=== PATIENT | female | born 1950 | race Two or more races ===

== ENCOUNTER 2016-04-29 13:15 | Emergency (ER) | payer OTHER ==
[~2016-04-29] VITALS: Ht 157.5 cm; Wt 97.5 kg
[2016-04-29 13:21] VITALS: BP 181/78
== END 2016-04-29 13:52 | disposition home or self-care (01) ==
LOC: ER 13:18
DX: I10 Essential (primary) hypertension (principal); E78.5 Hyperlipidemia, unspecified
CPT/HCPCS: 99283; A4606; Z7610

== ENCOUNTER 2017-06-14 12:11 | Emergency (ER) | payer OTHER ==
[~2017-06-14] VITALS: Ht 157.5 cm; Wt 96.2 kg
--- NOTE | 2017-06-14 12:20 | NUR ---
PATIENT TO ED DT ANXIETY SP LIVE ELECTRIC WIRE FELL ON HER [facility]. PATIENT DENIES INJURY. HOWEVER PATIENT'S ANXIOUS AT THIS TIME.. BP ON HIGH SIDE
--- NOTE | 2017-06-14 12:25 | NUR ---
MD CHAUHAN AT BEDSIDE
--- NOTE | 2017-06-14 12:38 | NUR ---
EKG IN PROGRESS
[2017-06-14 12:57] VITALS: BP 151/76
--- NOTE | 2017-06-14 12:58 | NUR ---
Patient discharged to home in stable condition. Written and verbal after care instructions given. Patient verbalizes understanding of instruction.
== END 2017-06-14 12:59 | disposition home or self-care (01) ==
LOC: ER 12:12
DX: F41.9 Anxiety disorder, unspecified (principal); E78.5 Hyperlipidemia, unspecified; I10 Essential (primary) hypertension
CPT/HCPCS: A4606; Z7610

== ENCOUNTER 2020-05-16 13:36 | Emergency (ER) | payer OTHER ==
[~2020-05-16] VITALS: Ht 162.6 cm; Wt 75.7 kg
[2020-05-16] MEDS ORDERED: BENA10TA74 PO (13:42)
[2020-05-16] MEDS ORDERED: LEVO25TA9 PO (13:42)
[2020-05-16] MEDS ORDERED: METO-358 PO (13:42)
[2020-05-16] MEDS ORDERED: APIX5TAB PO (13:42)
--- NOTE | 2020-05-16 14:06 | NUR ---
BIBS FROM HOME TO ER BED 4. AAOX4. NOT IN RESP DISTRESS, BREATHING EVEN AND UNLABORED. AMBULATORY. CAME IN FOR EPIGASTRIC PAIN SINCE WEDNESDAY. PT DENIES NAUSEA NOR VOMMITING. PAIN IS 5/10 BURNING, ACHING AND BLOATING. MD WAS AT THE BEDSIDE FOR EVAL. ORDERS RECEIVED, NOTED ADN CARRIED OUT
--- NOTE | 2020-05-16 14:10 | NUR ---
iv line started blood drawn and sent to lab.
--- NOTE | 2020-05-16 14:39 | NUR ---
dr gale at bedside for eval.
[2020-05-16 14:40] LABS: BASOPHILS # (AUTO) 0.1 /CMM (0.0-0.2); BASOPHILS % (AUTO) 0.5 % (0.0-2.0); EOSINOPHILS % (AUTO) 18.2 % (0.0-6.0); HEMATOCRIT 41 % (33-45); HEMOGLOBIN 13.2 g/dL (11.5-14.8); LYMPHOCYTES # (AUTO) 1.8 /CMM (0.8-4.8); LYMPHOCYTES % (AUTO) 19.5 % (20.0-44.0); MEAN CORPUSCULAR HGB CONC 33 g/dl (31.0-36.0); MEAN CORPUSCULAR VOLUME 90 fL (82-100); MONOCYTES # (AUTO) 0.4 /CMM (0.1-1.30); MONOCYTES % (AUTO) 4.1 % (2.0-12.0); NEUTROPHILS # (AUTO) 5.4 /CMM (1.8-8.9); NEUTROPHILS % (AUTO) 57.7 % (43.0-81.0); PLATELET COUNT (AUTO) 141 /CMM (150-450); RED BLOOD CELL COUNT(AUTO) 4.49 MIL/uL (4.0-5.2); WHITE BLOOD COUNT (AUTO) 9.4 K/uL (4.3-11.0)
--- NOTE | 2020-05-16 14:50 | NUR ---
u/s tech at bedside for gallbladder ultrasound.
[2020-05-16] MEDS ORDERED: ONDANSETRON HCL/PF 4 MG/2 ML VIAL ONE (14:56)
[2020-05-16] MEDS ORDERED: PANTOPRAZOLE 40 MG VIAL ONE (14:56)
[2020-05-16] MEDS ORDERED: MORPHINE SULFATE INJ 4 MG/ML DISP.SYRIN ONE (14:57)
[2020-05-16] MEDS ORDERED: IV NS 0.9% 1,000 ML BAG IV ONE (15:00)
[2020-05-16] MEDS ORDERED: MORPHINE SULFATE INJ 2 MG/ML DISP.SYRIN IV ONE (15:00)
[2020-05-16] MEDS ORDERED: PANTOPRAZOLE 40 MG VIAL IV ONE (15:00)
[2020-05-16] MEDS ORDERED: ONDANSETRON HCL/PF 4 MG/2 ML VIAL IVP ONE (15:00)
[2020-05-16 15:06] LABS: ALANINE AMINOTRANSFERASE 24 U/L (12-78); ALBUMIN 3.8 g/dL (3.4-5.0); ALKALINE PHOSPHATASE 106 U/L (46-116); ASPARTATE AMINOTRANSFERASE 19 U/L (15-37); BILIRUBIN,DIRECT 0.1 mg/dL (0.0-0.2); BILIRUBIN,TOTAL 0.4 mg/dL (0.2-1.0); CALCIUM, SERUM 9.6 mg/dL (8.5-10.1); CARBON DIOXIDE 28 mmol/L (21-32); CHLORIDE 103 mmol/L (98-107); CREATININE 1.1 mg/dL (0.6-1.3); GLUCOSE 106 mg/dL (74-106); LIPASE 96 U/L (73-393); POTASSIUM 4.4 mmol/L (3.5-5.1); SODIUM SERUM 139 mmol/L (136-145); TOTAL PROTEIN, SERUM 7.8 g/dL (6.4-8.2); UREA NITROGEN, BLOOD 13 mg/dL (7-18)
[2020-05-16] MEDS ORDERED: PANT40TA2 PO (15:52)
--- NOTE | 2020-05-16 16:09 | NUR ---
Patient discharged to home in stable condition. Written and verbal after care instructions given. Patient verbalizes understanding of instruction.IV removed. Catheter intact and site benign. Pressure and 4x4 applied to site. No bleeding noted.
[2020-05-16 16:10] VITALS: BP 128/84
== END 2020-05-16 16:10 | disposition home or self-care (01) ==
LOC: ER 13:43
DX: R10.10 Upper abdominal pain, unspecified (principal); I48.91 Unspecified atrial fibrillation; I10 Essential (primary) hypertension; R19.7 Diarrhea, unspecified; E78.5 Hyperlipidemia, unspecified; E66.01 Morbid (severe) obesity due to excess calories; Z68.28 Body mass index [BMI] 28.0-28.9, adult; Z79.899 Other long term (current) drug therapy
CPT/HCPCS: 36415; 71045; 76705; 80048; 80076; 83605; 83690; 84484; 85025; 93005; 96360; 99285; J7030; C9113; J2270; J2405

== ENCOUNTER 2020-10-02 19:54 | Emergency (ER) | payer OTHER ==
[~2020-10-02] VITALS: Ht 157.5 cm; Wt 97.5 kg
[~2020-10-02 19:54] MED LIST: APIX5TAB PO; BENA10TA74 PO; LEVO25TA9 PO; METO-358 PO; PANT40TA2 PO
--- NOTE | 2020-10-02 20:01 | NUR ---
PT AAOX4. BIB DAUGHTER C/O MIDSTERNAL CHEST PRESSURE SINCE 0900 OF TODAY. WAS TOLD TO COME TO THE ED FOR EVAL OF CP. PLACED ON CAUL PULLER AND PULSE OX. AWAITING ER MD FOR EVAL AND ORDERS.
--- NOTE | 2020-10-02 20:01 | NUR ---
EMT AT BEDSIDE FOR EKG
--- NOTE | 2020-10-02 20:31 | NUR ---
OBSTETRICS GYNECOLOGY PHYSICIAN AT BEDSIDE FOR BLOOD DRAW
[2020-10-02 20:35] LABS: BASOPHILS # (AUTO) 0.1 K/uL (0.0-0.2); BASOPHILS % (AUTO) 0.6 % (0.0-2.0); EOSINOPHILS % (AUTO) 4.4 % (0.0-6.0); HEMATOCRIT 42 % (33-45); HEMOGLOBIN 13.9 g/dL (11.5-14.8); LYMPHOCYTES # (AUTO) 1.9 K/uL (0.8-4.8); LYMPHOCYTES % (AUTO) 21.6 % (20.0-44.0); MEAN CORPUSCULAR HGB CONC 33 g/dl (31.0-36.0); MEAN CORPUSCULAR VOLUME 88 fL (82-100); MONOCYTES # (AUTO) 0.5 K/uL (0.1-1.30); NEUTROPHILS % (AUTO) 67.4 % (43.0-81.0); PLATELET COUNT (AUTO) 151 K/uL (150-450); WHITE BLOOD COUNT (AUTO) 8.9 K/uL (4.3-11.0)
[2020-10-02 20:43] LABS: CALCIUM, SERUM 9.2 mg/dL (8.5-10.1); CARBON DIOXIDE 26 mmol/L (21-32); CHLORIDE 104 mmol/L (98-107); CREATININE 1.1 mg/dL (0.6-1.3); GLUCOSE 139 mg/dL (74-106); POTASSIUM 3.7 mmol/L (3.5-5.1); SODIUM SERUM 138 mmol/L (136-145); UREA NITROGEN, BLOOD 21 mg/dL (7-18)
[2020-10-02 20:56] LABS: ALANINE AMINOTRANSFERASE 24 U/L (12-78); ALBUMIN 3.7 g/dL (3.4-5.0); ALKALINE PHOSPHATASE 77 U/L (46-116); ASPARTATE AMINOTRANSFERASE 17 U/L (15-37); BILIRUBIN,DIRECT 0.1 mg/dL (0.0-0.2); BILIRUBIN,TOTAL 0.5 mg/dL (0.2-1.0); TOTAL PROTEIN, SERUM 7.6 g/dL (6.4-8.2)
[2020-10-02] MEDS ORDERED: IV NS 0.9% 250 ML IV ONE (21:38)
[2020-10-02] MEDS ORDERED: CT SWABBABLE VALVE TRANS SET 1 EA INFUS.SET MC ONE (21:38)
[2020-10-02] MEDS ORDERED: IOHEXOL-350 100 ML VIAL IV ONE (21:38)
--- NOTE | 2020-10-02 22:44 | NUR ---
Patient does not wish to proceed with medical care recommended by Dr. Obando. Patient given information related to possible complications, up to and including , which could occur as a result of leaving the hospital at this time. Patient verbalizes understanding of risks involved due to leaving against medical advice. Patient has signed AMA form. Pt stated she will follow up by her budget engineer tomorrow.
[2020-10-02 22:46] VITALS: BP 141/76
== END 2020-10-02 23:19 | disposition left against medical advice (07) ==
LOC: ER 19:56
DX: R07.89 Other chest pain (principal); I10 Essential (primary) hypertension; E78.00 Pure hypercholesterolemia, unspecified; E11.9 Type 2 diabetes mellitus without complications; I48.91 Unspecified atrial fibrillation; Z79.899 Other long term (current) drug therapy
CPT/HCPCS: 36415; 71045; 71275; 80048; 80076; 83690; 83880; 84484; 85025; 85378; 93005 ×2; 99285; J7050; Q9967

== ENCOUNTER 2021-01-15 16:23 | Emergency (ER) | payer OTHER ==
[~2021-01-15] VITALS: Ht 157.5 cm; Wt 97.1 kg
--- NOTE | 2021-01-15 16:50 | NUR ---
PT C/O ELEVATED BP SINCE 12PM. BP WAS 147/87 THIS MORNING AND HAS BEEN TRENDING IN THE 160s AT THIS TIME. SLIGHT HEADACHE AND FACIAL FLUSHING. DENIES N/V, DIAPHORESIS.A&OX4. PT IN NO APPARENT DISTRESS AND IN A GOOD MOOD. AMBULATORY. SKIN IS WARM AND DRY. CHEEKS ARE FLUSHED. ATTACHED TO MONITOR. BP 163/108. HR 101.
[2021-01-15 17:24] LABS: BASOPHILS % (AUTO) 0.6 % (0.0-2.0); EOSINOPHILS % (AUTO) 4.2 % (0.0-6.0); HEMATOCRIT 41 % (33-45); HEMOGLOBIN 13.2 g/dL (11.5-14.8); LYMPHOCYTES # (AUTO) 0.9 K/uL (0.8-4.8); LYMPHOCYTES % (AUTO) 13.1 % (20.0-44.0); MEAN CORPUSCULAR HGB CONC 32 g/dl (31.0-36.0); MEAN CORPUSCULAR VOLUME 90 fL (82-100); MONOCYTES # (AUTO) 0.2 K/uL (0.1-1.30); MONOCYTES % (AUTO) 3.2 % (2.0-12.0); NEUTROPHILS # (AUTO) 5.5 K/uL (1.8-8.9); NEUTROPHILS % (AUTO) 78.9 % (43.0-81.0); PLATELET COUNT (AUTO) 137 K/uL (150-450); RED BLOOD CELL COUNT(AUTO) 4.58 MIL/uL (4.0-5.2)
[2021-01-15 17:35] LABS: CALCIUM, SERUM 8.8 mg/dL (8.5-10.1); POTASSIUM 4.4 mmol/L (3.5-5.1)
[2021-01-15 18:34] VITALS: BP 141/103
--- NOTE | 2021-01-15 18:34 | NUR ---
Patient discharged to home in stable condition. Written and verbal after care instructions given. Patient verbalizes understanding of instruction.
== END 2021-01-15 18:37 | disposition home or self-care (01) ==
LOC: ER 16:25
DX: I10 Essential (primary) hypertension (principal); I48.91 Unspecified atrial fibrillation; E78.5 Hyperlipidemia, unspecified; Z79.899 Other long term (current) drug therapy
CPT/HCPCS: 36415; 80048-TC; 80061-TC; 85025-TC

== ENCOUNTER 2022-11-02 20:01 | Emergency (ER) | payer OTHER ==
[~2022-11-02] VITALS: Ht 157.5 cm; Wt 101.6 kg
[2022-11-02] MEDS ORDERED: MAG HYDROX/AL HYDROX/SIMETH 30 ML UDC PO ONE (20:30)
[2022-11-02] MEDS ORDERED: LIDOCAINE VISCOUS 2% UD 15 ML UDC MM ONE (20:30)
[2022-11-02] MEDS ORDERED: MAG HYDROX/AL HYDROX/SIMETH 30 ML UDC ONE (20:36)
[2022-11-02] MEDS ORDERED: LIDOCAINE VISCOUS 2% UD 15 ML UDC ONE (20:36)
[2022-11-02 20:53] LABS: BASOPHILS % (AUTO) 0.4 % (0.0-2.0); EOSINOPHILS # (AUTO) 0.3 K/uL (0.0-0.7); EOSINOPHILS % (AUTO) 5.1 % (0.0-6.0); HEMATOCRIT 40 % (33-45); HEMOGLOBIN 12.9 g/dL (11.5-14.8); LYMPHOCYTES # (AUTO) 1.6 K/uL (0.8-4.8); LYMPHOCYTES % (AUTO) 23.9 % (20.0-44.0); MEAN CORPUSCULAR HEMOGLOBIN 28 PG (26.0-33.0); MEAN CORPUSCULAR HGB CONC 32 g/dl (31.0-36.0); MEAN CORPUSCULAR VOLUME 87 fL (82-100); MONOCYTES # (AUTO) 0.5 K/uL (0.1-1.30); MONOCYTES % (AUTO) 7.3 % (2.0-12.0); NEUTROPHILS # (AUTO) 4.3 K/uL (1.8-8.9); NEUTROPHILS % (AUTO) 63.3 % (43.0-81.0); PLATELET COUNT (AUTO) 119 K/uL (150-450); RED BLOOD CELL COUNT(AUTO) 4.56 MIL/uL (4.0-5.2); RED CELL DISTRIBUTION WIDTH 14.8 % (11.5-15.0); WHITE BLOOD COUNT (AUTO) 6.8 K/uL (4.3-11.0)
[2022-11-02 21:34] LABS: ALANINE AMINOTRANSFERASE 25 U/L (12-78); ALBUMIN 3.4 g/dL (3.4-5.0); ALKALINE PHOSPHATASE 108 U/L (46-116); ASPARTATE AMINOTRANSFERASE 18 U/L (15-37); BILIRUBIN,DIRECT 0.1 mg/dL (0.0-0.2); BILIRUBIN,TOTAL 0.2 mg/dL (0.2-1.0); CARBON DIOXIDE 23 mmol/L (21-32); CHLORIDE 107 mmol/L (98-107); GLUCOSE 140 mg/dL (74-106); LIPASE 134 U/L (73-393); POTASSIUM 3.9 mmol/L (3.5-5.1); SODIUM SERUM 141 mmol/L (136-145); TOTAL PROTEIN, SERUM 7.1 g/dL (6.4-8.2); UREA NITROGEN, BLOOD 19 mg/dL (7-18)
[2022-11-02 21:39] LABS: APPEARANCE,URINE CLEAR (CLEAR); BILIRUBIN,URINE NEGATIVE (NEGATIVE); BLOOD, URINE NEGATIVE Ery/uL (NEGATIVE); COLOR,URINE YELLOW (YELLOW); KETONES,URINE NEGATIVE (NEGATIVE); LEUKOCYTE ESTERASE ,URINE NEGATIVE (NEGATIVE); NITRITE, URINE POSITIVE (NEGATIVE); PH,URINE 5.5 (5.0-8.0); PROTEIN,URINE NEGATIVE (NEGATIVE); UGLUCOSE NEGATIVE (NEGATIVE); UROBILINOGEN,URINE 0.2 EU/dL (0.2)
[2022-11-02 21:46] LABS: ADD URINE CULTURE YES; BACTERIA,URINE 2+ /HPF (None Seen); RBC,URINE 0-2 /HPF (0-2); WBC,URINE 0-2 /HPF (0-3); YEAST,URINE Few /HPF (None Seen)
[2022-11-02] MEDS ORDERED: OMEP20TA5 PO (22:32)
[2022-11-02 23:33] VITALS: BP 167/106; TEMP 98.2; O2SAT 97
== END 2022-11-02 23:11 | disposition home or self-care (01) ==
LOC: ER 20:02
DX: R10.13 Epigastric pain (principal); I10 Essential (primary) hypertension; I48.91 Unspecified atrial fibrillation; E78.5 Hyperlipidemia, unspecified
CPT/HCPCS: 36415; 71045-TC; 80048-TC; 80076-TC; 81001; 83690-TC; 84484-TC; 85025-TC; 87086-TC